=== PATIENT | female | born 1995 | race Caucasian/White ===

== ENCOUNTER 2018-01-22 00:30 | Inpatient (IN) ==
[2018-01-22] MEDS ORDERED: ONDANSETRON HCL/PF 2 MG/ML VIAL IV PRN ×2 (00:32→12:30)
[2018-01-22] MEDS ORDERED: OXYTOCIN/DEXTROSE 5%-WATER 30 UNITS/500 ML BAG IV ONE ×2 (00:32→18:31)
[2018-01-22] MEDS ORDERED: DEXTROSE 5%-LACTATED RINGERS 1,000 ML IV PRN (00:32)
[2018-01-22] MEDS ORDERED: RINGER'S SOLUTION,LACTATED 1,000 ML IV ONE (00:32)
--- NOTE | 2018-01-22 10:36 | HP ---
Chief Complaint - Chief Complaint Date of Service: 01/22/18 Time of Service: 10:36 Chief Complaint: induction of labor for twins History of Present Illness: 23 yo at 38 wks with di/di twins in vtx/breech presentation here for induction of labor. This complicated by twin gestation, influenza A in June, anemia and h/o GHTN with last . Rh positive (A+) RI GBS negative Medical History (Last Reviewed 01/22/18 @ 10:50 by Geovany Mcdonnell DO) Dichorionic diamniotic twin , antepartum (Acute) Onset Date: 07/15/17 Anemia (Acute) Onset Date: Unknown Gestational hypertension Onset Date: ~09/2015 Influenza A Onset Date: 06/27/17 Syncope Onset Date: Unknown Surgical History: Surgical History (Last Reviewed 01/22/18 @ 10:50 by Geovany Mcdonnell DO) History of tonsillectomy Onset Date: Unknown [place] teeth extracted Onset Date: ~2011 Family History: Family History (Last Reviewed 01/22/18 @ 10:50 by Geovany Mcdonnell DO) Father Myocardial infarction Mother Alive and well Grandfather Parkinsons disease Bladder cancer Grandfather Myocardial infarction Grandmother A-fib CHF (congestive heart failure) Lung cancer Grandmother Parkinsons disease Renal failure Uncle Diabetes Heart disease Social History: Preferred Language Fijian Abuse History No History of abuse Psych History No pertinent hx Review Of Systems (GEN) - Review of Systems Generalized/Overall Review: Present: No Symptoms Reported EENTM: Present: No Symptoms Reported Respiratory: Present: No Symptoms Reported Cardiac: Present: No Symptoms Reported Abdominal: Present: No Symptoms Reported Genitourinary: Present: No Symptoms Reported Musculoskeletal: Present: No Symptoms Reported Neurological: Present: No Symptoms Reported Skin: Present: No Symptoms Reported Endocrine: Present: No Symptoms Reported Immunizations: IMMUNIZATION HX Immunizations Up to Date Yes History of Influenza Vaccine Yes Hx Pneumococcal Vaccination No Allergies/Adverse Reactions: Allergies Allergy/AdvReac Type Severity Reaction Status Date / Time No Known Allergies Allergy Verified 01/22/18 00:32 Home Medications: HOME MEDICATIONS Vits96/Iron Fum/Folic [ S] 1 tab PO DAILY 09/13/15 [Last Taken 09/29/15 08:00] ascorbic acid (vitamin C) 500 mg tablet 500 mg PO TID tab 12/18/17 [Last Taken Unknown] aspirin 81 mg tablet,delayed release 81 mg PO DAILY 12/18/17 [Last Taken Unknown ] calcium carbonate 500 mg calcium (1,250 mg) capsule 500 mg PO DAILY cap [Last Taken Unknown] ferrous sulfate 325 mg (65 mg iron) tablet 325 mg PO TID tab 12/18/17 [Last Taken Unknown] Docusate Sodium [Stool Softener] 100 mg PO DAILY 01/22/18 [Last Taken Unknown] Exam - Exam Constitutional: Present: Alert, Oriented x3, Cooperative ENT Exam: Present: hearing grossly normal Breasts: Present: Exam deferred Respiratory: Present: lungs clear, no respiratory distress Cardiovascular/Chest: Present: normal peripheral pulses, regular rate, rhythm, edema - trace Abdomen: Present: soft, nontender, other - gravid. Absent: guarding /Rectal: Present: Other - cervix 08/14/- Extremity: Present: non-tender, no calf tenderness Skin Exam: Present: normal color, warm/dry, no cyanosis Lymphatic: Present: no adenopathy Neurologic: Present: alert, normal mood/affect, oriented x 3 Appearance: Present: appropriate appearance, appropriate insight Eye contact: Present: cooperative, good eye contact, normal speech Thoughts: Present: normal thought pattern Assessment/Plan - Assessment/Plan (1) Dichorionic diamniotic twin , antepartum Assessment: Pitocin induction of labor. Plan for vaginal delivery in OR. Epidural PRN. Problem: Acute
--- NOTE | 2018-01-22 10:40 | PN ---
Progess Note - Interim Date: 01/22/18 Time: 10:37 Narrative: 01/22/18 10:37 Patient rating contractions 4/10 Vital signs stable. Pitocin at 6 mu/min. FHT:A 130 baseline, reassuring B 140 baseline, reassuring Contractions q 2-3 min Cervix: 08/14/-3 Impression: Intrauterine at 38 weeks di/di twins. Induction of labor Plan: Cervical Lozano placed with Lozano bulb filled to 75 mL.
[2018-01-22] MEDS ORDERED: BUPIVACAINE HCL/0.9 % NACL/PF 250 ML EP PRN (12:30)
[2018-01-22] MEDS ORDERED: fentaNYL CITRATE/PF 50 MCG/ML AMPUL IT SCH (12:30)
[2018-01-22] MEDS ORDERED: NALOXONE HCL 1 MG/1 ML SYRG IV PRN (12:30)
--- NOTE | 2018-01-22 12:44 | ANES ---
Anesthesia Pre Procedure Eval HOME MEDICATIONS Vits96/Iron Fum/Folic [ S] 1 tab PO DAILY 09/13/15 [Last Taken 09/29/15 08:00] ascorbic acid (vitamin C) 500 mg tablet 500 mg PO TID tab 12/18/17 [Last Taken Unknown] aspirin 81 mg tablet,delayed release 81 mg PO DAILY 12/18/17 [Last Taken Unknown ] calcium carbonate 500 mg calcium (1,250 mg) capsule 500 mg PO DAILY cap [Last Taken Unknown] ferrous sulfate 325 mg (65 mg iron) tablet 325 mg PO TID tab 12/18/17 [Last Taken Unknown] Docusate Sodium [Stool Softener] 100 mg PO DAILY 01/22/18 [Last Taken Unknown] Allergies/Adverse Reactions: Allergies Allergy/AdvReac Type Severity Reaction Status Date / Time No Known Allergies Allergy Verified 01/22/18 00:32 - Planned Procedure Planned Procedure: induction Medication List Reviewed:: Yes Allergies Verified: Yes Medical History (Last Reviewed 01/22/18 @ 12:43 by Maykel Lopez CRNA) Dichorionic diamniotic twin , antepartum (Acute) Onset Date: 07/15/17 Anemia (Acute) Onset Date: Unknown Gestational hypertension Onset Date: ~09/2015 Influenza A Onset Date: 06/27/17 Syncope Onset Date: Unknown Surgical History (Last Reviewed 01/22/18 @ 12:43 by Maykel Lopez CRNA) History of tonsillectomy Onset Date: Unknown [place] teeth extracted Onset Date: ~2011 Family History (Last Reviewed 01/22/18 @ 10:50 by Geovany Mcdonnell DO) Father Myocardial infarction Mother Alive and well Grandfather Parkinsons disease Bladder cancer Grandfather Myocardial infarction Grandmother A-fib CHF (congestive heart failure) Lung cancer Grandmother Parkinsons disease Renal failure Uncle Diabetes Heart disease - Family Anesthesia History Family History:: no untoward family reactions to anesthesia - Airway/Neck/Teeth Within Normal Limits:: Yes Teeth Condition: Intact Mallampatti Score: 2 Thyromental (T-M) distance: > 6 cm Mandibulo Hyoid distance: > 3 cm - Respiratory Respiratory: lungs clear, normal breath sounds Smoking Status: Never smoker - Cardiovascular Patient History - Cardiac/Respiratory: No pertinent hx Tolerates Activity: Good Heart Sounds: S1 & S2, Regular - Anesthesia Assessment and Plan ASA Class: II, E Anesthesia Type Plan: Epidural
--- NOTE | 2018-01-22 13:12 | PN ---
Progess Note - Interim Date: 01/22/18 Time: 13:00 Narrative: 01/22/18 13:00 Patient requesting epidural Vital signs stable. Pitocin at 6 mu/min. FHT: A 140 baseline, reassuring B 130 baseline, reassuring Contractions q 1.5-2 min Cervix: 8/60/-2 Impression: Intrauterine di/di twins at 38 weeks in labor Plan: Expect spontaneous vaginal delivery soon
--- NOTE | 2018-01-22 13:23 | ANES ---
Anesthesia Procedure Note Procedure Note: ANESTHESIA PROCEDURE NOTE Date of Procedure: 01/22/2018 Time of procedure:[]. 1300 Performed by: Yousif Lopez CRNA Pe Teacher: None. Preprocedure diagnosis: Active labor. Post procedure diagnosis: Same. Procedure: Insertion of labor epidural. Indications: The patient is a [23] -year-old [multigravida] female in active labor requesting labor epidural for pain management. Findings: See below. Details of the procedure: The patient was placed in a sitting position. Back was prepped with DuraPrep. Patient was then draped in a sterile fashion. Lidocaine 1% was infiltrated to the skin and subcutaneous tissues at the level of the L3 4 interspace. The epidural space was identified using a 18-gauge Tuohy needle with qyqj-hi-xmjabavywy technique. 20 mcg fentanyl was given intrathecally using a 27 ga. spinal needle. Epidural catheter was inserted without difficulty. Negative test dose was elicited using 5 mL of 1.5% preservative-free lidocaine plus epinephrine 1 200,000. The epidural catheter was then taped and secured in place. EBL: Minimal. Fluids: N/A. Specimen: N/A. Post procedure condition: The patient tolerated the procedure well. No complications were noted. Thank you for this consultation. Rojo CRNA
--- NOTE | 2018-01-22 13:23 | ANES ---
Post Anesthesia Discharge - Transfer of Care Transfer of Care handoff given to nurse: Yes - Anesthesia Post Op Note Anesthesia Post Op Note: care transferred to OB RN
--- NOTE | 2018-01-22 15:46 | PN ---
Progess Note - Interim Date: 01/22/18 Time: 15:42 Narrative: 01/22/18 15:42 Patient comfortable with epidural Vital signs stable. Pitocin at 3 mu/min. FHT: A 125 baseline, good [id number] variability with accelerations and occasional variable decelerations B 130 baseline, reassuring Contractions q 2-3 min Cervix: 8/80/-2 Impression: Intrauterine when at 38 weeks with protracted descent Plan: Will continue position changes. If no descent or change in dilation over the next 1-2 hours we'll consider section. FSE placed on baby A to better assess tracing
[2018-01-22] MEDS ORDERED: IBUPROFEN 800 MG TABLET ONE (18:26)
[2018-01-22] MEDS: IBUPROFEN 800 MG TABLET PO PRN (18:27)
[2018-01-22] MEDS ORDERED: BISACODYL 10 MG SUPP.RECT RC PRN (18:31)
[2018-01-22] MEDS ORDERED: SENNOSIDES 8.6 MG TABLET PO PRN (18:31)
[2018-01-22] MEDS ORDERED: BENZOCAINE/MENTHOL 81 SPRAY CAN TP PRN (18:31)
[2018-01-22] MEDS ORDERED: GLYCERIN/WITCH HAZEL LEAF 40 APPL BOX TP PRN (18:31)
[2018-01-22] MEDS ORDERED: oxyCODONE HCL/ACETAMINOPHEN 1 TAB TABLET PO PRN ×2 (18:31)
[2018-01-22] MEDS ORDERED: HYDROCORTISONE 30 APPL TUBE TP PRN (18:31)
--- NOTE | 2018-01-22 18:37 | OR ---
Operative Report - Dictated Report Narrative: Spontaneous vaginal delivery of viable male at 1730 on 01/22/2018 with Apgars 8 and 9, weighing 2896 g in MASOUD position, loop of cord at chest. Spontaneous vaginal delivery of viable female at 1759 on 01/22/2018 with Apgars 9 and 9, weighing 2790 g in MASOUD position, right arm cord 1. Cord clamping delayed approximately 1 minute for each baby Placentas delivered complete, intact, with three vessel cord. Clamp on baby A' s cord. Estimated blood loss: 100 mL Anesthesia: epidural Lacerations: None
[2018-01-22] MEDS ORDERED: DOCUSATE SODIUM 100 MG CAPSULE PO SCH (21:00)
[2018-01-23] MEDS: IBUPROFEN 800 MG TABLET PO PRN ×4 (01:45→21:39)
[2018-01-23] MEDS: FERROUS SULFATE 325 MG TABLET PO SCH ×4 (02:43→21:37)
[2018-01-23] MEDS: PRENATAL VITS96/IRON FUM/FOLIC 1 TAB TABLET PO SCH (08:29)
[2018-01-23] MEDS: DOCUSATE SODIUM 100 MG CAPSULE PO SCH (08:29)
[2018-01-23] MEDS: ASCORBIC ACID 500 MG TABLET PO SCH ×3 (08:32→21:36)
[2018-01-23] MEDS: CALCIUM CARBONATE/VITAMIN D3 1 TAB TABLET PO SCH (08:57)
[2018-01-24] MEDS: IBUPROFEN 800 MG TABLET PO PRN ×2 (04:39→10:46)
[2018-01-24 08:09] VITALS: BP 115/71
[2018-01-24] MEDS: DOCUSATE SODIUM 100 MG CAPSULE PO SCH (09:17)
[2018-01-24] MEDS: CALCIUM CARBONATE/VITAMIN D3 1 TAB TABLET PO SCH (09:17)
[2018-01-24] MEDS: FERROUS SULFATE 325 MG TABLET PO SCH (09:17)
[2018-01-24] MEDS: ASCORBIC ACID 500 MG TABLET PO SCH (09:17)
[2018-01-24] MEDS: PRENATAL VITS96/IRON FUM/FOLIC 1 TAB TABLET PO SCH (09:17)
--- NOTE | 2018-01-24 09:37 | PN ---
Subjective - Date and Time Seen Date: 01/24/18 Time: 09:34 - patient seen yesterday am Objective - Vitals Vitals: Last Vital Signs Temp 36.3 C 01/24/18 08:09 Pulse 85 01/24/18 08:09 Resp 18 01/24/18 08:09 BP 115/71 01/24/18 08:09 Pulse Ox 99 01/24/18 08:09 Patient denies complaints. Breast-feeding without difficulty. Lochia wnl Abdomen - soft, nontender Uterus - firm, at umbilicus - 1 No calf tenderness Impression: day #1 - s/p spontaneous vaginal delivery. Twin . Plan: Continue routine care Cauti Physician Documentation - Urinary Catheter Management Urethral (Lozano) Date of Insertion: 01/22/18 Time of Insertion: 12:30 Date of Removal: 01/22/18 Time of Removal: 16:55 Assessment/Plan - Problems/Diagnosis (1) Dichorionic diamniotic twin , antepartum Problem: Acute
--- NOTE | 2018-01-24 09:38 | PN ---
Subjective - Date and Time Seen Date: 01/24/18 Time: 09:37 Objective - Vitals Vitals: Last Vital Signs Temp 36.3 C 01/24/18 08:09 Pulse 85 01/24/18 08:09 Resp 18 01/24/18 08:09 BP 115/71 01/24/18 08:09 Pulse Ox 99 01/24/18 08:09 Patient denies complaints. Breast-feeding well Lochia wnl Abdomen - soft, nontender Uterus - firm, at umbilicus - 2 No calf tenderness Impression: day #2 - s/p spontaneous vaginal delivery. Twin Plan: Routine discharge instructions. Cauti Physician Documentation - Urinary Catheter Management Urethral (Lozano) Date of Insertion: 01/22/18 Time of Insertion: 12:30 Date of Removal: 01/22/18 Time of Removal: 16:55 Assessment/Plan - Problems/Diagnosis (1) Dichorionic diamniotic twin , antepartum Problem: Acute
--- NOTE | 2018-01-26 13:05 | PN ---
Progess Note - Interim Date: 01/26/18 Time: 13:04 - late entry for 01/22/18 delivery. History for MU Definition: * The number of deliveries resulting in a live the patient experienced prior to current hospitalization * The previous delivery of live twins or any live multiple gestation is considered one live event. *If primagravida or nulliparous is documented select zero for the number of previous live births. Live Events: 1
== END 2018-01-24 11:30 | disposition home or self-care (01) | DRG 775 ==
LOC: OB 00:30
PROVIDERS: ADMIT Obstetrics & Gynecology; ATTEND Obstetrics & Gynecology
CPT/HCPCS: 59025; 88307